=== PATIENT | female | born 1950 | race Caucasian/White ===

== ENCOUNTER 2018-02-04 06:15 | Day surgery (SDC) | payer OTHER ==
[2018-01-31 12:11] VITALS: BMI 29.2
[2018-02-04] MEDS ORDERED: EPINEPHrine 1:1000 Nasal Sol(30mL) ONE (07:19)
[2018-02-04] MEDS ORDERED: Lidocaine 1% w Epi 1:100,000 Inj ONE (07:20)
[2018-02-04] MEDS ORDERED: Midazolam 2 MG/2 ML VIAL ONE (07:38)
[2018-02-04] MEDS ORDERED: Propofol 10 mg/ml Inj (20 ML) ONE (07:38)
[2018-02-04] MEDS ORDERED: Lidocaine PF 2% (5 ml) Inj (For Cardiac Arrhy) ONE (07:39)
[2018-02-04] MEDS ORDERED: Succinylcholine 200 mg/10 ml Inj IV ONE (07:41)
[2018-02-04] MEDS ORDERED: Rocuronium 10 mg/ml (5 ml) ONE (07:41)
[2018-02-04] MEDS ORDERED: Neostigmine Methylsulfate 3mg/3ml Syringe IV ONE (08:33)
[2018-02-04] MEDS ORDERED: Glycopyrrolate 0.2 mg/ml (2ml vial) ONE (08:34)
[2018-02-04] MEDS ORDERED: HYDROmorphone 0.5 mg/0.5 ml ISec IVP PRN ×2 (08:48→08:51)
[2018-02-04] MEDS ORDERED: Oxycodone/Acetaminophen 5/325 mg Tab PO PRN (08:52)
[2018-02-04] MEDS ORDERED: Lactated Ringer's 1,000 ML IV SCH (09:00)
[2018-02-04 09:18] VITALS: O2SAT 98
[2018-02-04 10:09] VITALS: RESP 18; TEMP 97.6
[2018-02-04 11:19] VITALS: BP 142/70; PULSE 72
--- NOTE | 2018-02-07 08:34 | OP ---
PROCEDURE DATE: 02/04/2018 PREOPERATIVE DIAGNOSIS: Left vocal cord mass. POSTOPERATIVE DIAGNOSIS: Left vocal cord mass. PROCEDURE: Direct microlaryngoscopy with biopsy. SURGEON: Arash Amaral DO. TYPE OF ANESTHESIA: General endotracheal. ANESTHESIA ADMINISTERED BY: Live Degroot DO. FINDINGS: Lesion involving entire left true cord. COMPLICATIONS: None. CONDITION: The patient tolerated the procedure well, was sent to postoperative care unit in stable condition. DESCRIPTION OF PROCEDURE: After informed consent was obtained, the patient clearly understood the risks versus benefits versus alternatives of performing the procedure and was agreeable to above. The patient was transferred back to operative suite. She was adequately anesthetized at this point with anesthesia being a general endotracheal tube intubation. Dedo suspension was inserted. Larynx was fully inspected after prepping and draping in the usual sterile fashion. Dedo laryngoscope was then suspended at level of the glottis on adjacent Boateng stand with utilizing the NeuroVigil suspension device. Next, under microscopic telescopic view, the vocal cord was inspected. There was a exophytic mass involving the entire left true vocal cord to the anterior commissure. Multiple biopsies were performed removing the entire mucosa to the level of the muscle. The lesion did not appear to be invading the muscle. Topical adrenaline and epinephrine was applied to the area and removed. The patient tolerated the procedure well. Scope was withdrawn. Findings documented. Arash Amaral DO
== END 2018-02-04 11:20 | disposition home or self-care (01) ==
LOC: SDS 06:15
PROVIDERS: ATTEND Otolaryngology Otolaryngology/Facial Plastic Surgery
DX: C32.0 Malignant neoplasm of glottis (principal)
CPT/HCPCS: 31536; 88305; J0330; J0690; J1100; J1170; J2250; J2405; J2704; J2710; J2765; J3010; J7120 ×2